=== PATIENT | female | born 1975 | race Caucasian/White ===

== ENCOUNTER 2016-11-25 06:13 | Emergency (ER) | payer OTHER, MEDICAID ==
[2016-11-25 06:25] VITALS: BP 102/76; PULSE 96; RESP 14; TEMP 98.1; O2SAT 94
--- NOTE | 2016-11-25 07:02 | EDPHY ---
H & P Stated Complaint: R wrist injury, FOOSH Time Seen by Provider: 11/25/16 06:27 HPI/ROS: HPI The patient presents with a fall which occurred 2 days ago onto her outstretched right arm. She has had pain for the last 2 days which is worse with movement, thus she comes into the emergency room. She has had no prior wrist injuries. The pain is over the ulnar aspect of her wrist is worse with movement, achy in nature, does not radiate, not associated with any numbness or tingling of the hand.. REVIEW OF SYSTEMS Constitutional: No fever, no chills. Musculoskeletal: No back pain. Skin: No rashes. Neurological: No headache. PMHx: Chronic pain Soc Hx: Homeless FHx: PHYSICAL General Appearance: Alert, no distress Eyes: Pupils equal and round no pallor or injection ENT, Mouth: Mucous membranes moist Respiratory: Breathing comfortably Neurological: A&O, moves all extremities Skin: Warm and dry, no rashes Musculoskeletal: Neck is supple non tender Extremities: Right wrist with mild tenderness overlying the anterior medial aspect of the wrist with no deformity, full range of motion of the wrist, 2+ radial pulses, sensation intact of hand Psychiatric: Patient is oriented X 3, there is no agitation Source: Patient Exam Limitations: No limitations - Personal History LMP (Females 10-55): 8-14 Days Ago Current Tetanus/Diphtheria Vaccine: Unsure Tetanus Vaccine Date: Pt. unsure of date - Medical/Surgical History Hx Asthma: No Hx Chronic Respiratory Disease: No Hx Diabetes: No Hx Cardiac Disease: No Hx Renal Disease: No Hx Cirrhosis: No Hx Alcoholism: No Hx HIV/AIDS: No Hx Splenectomy or Spleen Trauma: No Other PMH: PMHx: Polycystic ovarian disease, Bipolar, PTSD, anxiety,Chronic pain , depression, SI hx. PSHx: Gallbladder removed, appy - Social History Smoking Status: Former smoker Constitutional: Initial Vital Signs Temperature (C) 36.7 C 11/25/16 06:19 Heart Rate 96 11/25/16 06:19 Respiratory Rate 14 11/25/16 06:19 Blood Pressure 102/76 11/25/16 06:19 O2 Sat (%) 94 11/25/16 06:19 O2 Delivery Mode Room Air Allergies/Adverse Reactions: Latex, Natural Rubber Allergy (Intermediate, Verified 09/05/15 16:11) Rash codeine Allergy (Mild, Verified 09/05/15 16:11) Other-Enter Comments morphine Allergy (Mild, Verified 09/05/15 16:11) Other-Enter Comments Home Medications: Medication Instructions Recorded Diazepam [Valium 5 MG (*)] 5 mg PO TID PRN 09/26/14 oxyCODONE IR [Oxycodone Ir (*)] 5 mg PO Q6 PRN 09/26/14 Abilify 11/25/16 Effexor 11/25/16 IBUPROFEN 11/25/16 Medical Decision Making - Diagnostics Imaging Results: Right wrist three views shows no fracture, no dislocation, interpreted by me, radiology interpretation is pending. Imaging: I viewed and interpreted images myself Differential Diagnosis: This is a 41-year-old female with right wrist injury 2 days ago with continued pain. Differential diagnosis includes Colles fracture, wrist sprain, ulnar styloid fracture. In the emergency department x-rays were obtained and were unremarkable. She was placed in a Velcro wrist splint for comfort. I have instructed her to use ice as needed and she can follow up with her primary care doctor. Departure - Departure Disposition: Home, Routine, Self-Care Clinical Impression: Wrist sprain Qualifiers: Encounter type: initial encounter Laterality: right Qualified Code(s): S63.501A - Unspecified sprain of right wrist, initial encounter Condition: Good Instructions: Wrist Sprain (ED) Additional Instructions: Please use rest, ice, elevation as needed. You should return to the emergency room if your worse in any way. Referrals: KVNG LANGFORD [Primary Care Provider] - As per Instructions
== END 2016-11-25 07:21 | disposition home or self-care (01) ==
DX: S63.501A Unspecified sprain of right wrist, initial encounter (principal); Z87.891 Personal history of nicotine dependence; Z91.040 Latex allergy status; W19.XXXA Unspecified fall, initial encounter
CPT/HCPCS: 73110; 99283; L3807

== ENCOUNTER 2017-10-03 00:35 | Emergency (ER) | payer OTHER, MEDICAID ==
[2017-10-03] MEDS ORDERED: NS 1,000 ML IV ONE (00:55)
--- NOTE | 2017-10-03 00:57 | EDPHY ---
H & P Stated Complaint: RUQ abd pain since lastnight Time Seen by Provider: 10/03/17 00:57 HPI/ROS: HPI CHIEF COMPLAINT: Abdominal pain, right upper quadrant HISTORY OF PRESENT ILLNESS: Patient is a very pleasant 42-year-old female, she presents emergency room right upper quadrant abdominal pain she describes as sharp stabbing it is worse after she breathes in. Shows the pain as sharp stabbing right upper quadrant. It hurts when you press on her right upper quadrant. She denies any chest pain. Denies shortness of breath, denies productive cough. States the symptoms have been present since yesterday or early in the morning. She has had nausea but no vomiting she also endorses some diarrhea. Denies any lower abdominal pain. No fever. Past Medical History: Patient has a history of polycystic ovarian syndrome, bipolar disorder, PTSD, chronic pain, diabetes Past Surgical History: Cholecystectomy, appendectomy, tubal ligation, bladder surgery Social History: Denies daily use of drugs alcohol tobacco. Homeless. Family History: Noncontributory. ROS REVIEW OF SYSTEMS: A comprehensive 10 point review of systems is otherwise negative aside from elements mentioned in the history of present illness. Exam Constitutional nontoxic appearing, triage nursing summary reviewed, vital signs reviewed, awake/alert. Eyes normal conjunctivae and sclera, EOMI, PERRLA. HENT normal inspection, atraumatic, moist mucus membranes, no epistaxis, neck supple/ no meningismus, no raccoon eyes. Respiratory clear to auscultation bilaterally, normal breath sounds, no respiratory distress, no wheezing. Cardiovascular rate normal, regular rhythm, no murmur, no edema, distal pulses normal. Gastrointestinal focal tenderness right upper quadrant, no peritoneal signs, reproducible on exam, no rebound, no guarding, normal bowel sounds, no distension, no pulsatile mass. Genitourinary no CVA tenderness. Musculoskeletal no midline vertebral tenderness, full range of motion, no calf swelling, no tenderness of extremities, no meningismus, good pulses, neurovascularly intact. Skin pink, warm, & dry, no rash, skin atraumatic. Neurologic awake, alert and oriented x 3, AAOx3, moves all 4 extremities equally, motor intact, sensory intact, CN II-XII intact, normal cerebellar, normal vision, normal speech. Psychiatric normal mood/affect. Heme/Lymph/Immune no lymphadenopathy. Differential diagnosis includes but is not limited to and in no particular order : Bowel obstruction, appendicitis, gallbladder disease, diverticulitis, colitis , enteritis, perforated viscus, gastritis, GERD, esophagitis, urinary tract infection, pyelonephritis, kidney stones Medical Decision Making: Plan for this patient IV establishment with blood draw IV fluids, Toradol for pain control, check electrolytes, CBC, abdominal labs and CT scan abdomen pelvis with IV contrast. Re-evaluation: CT scan abdomen pelvis with IV contrast shows no acute inflammatory process called to me by Dr. Rosas. Urinalysis shows UTI nitrite positive. I have ordered urine culture. Will give a g of Rocephin. 0318: I did re-evaluate the patient this time she is resting comfortably. Abdomen is soft. Not vomiting. I went over her test results with her she is afebrile here. Urine cultures been sent. 1 g Rocephin. Keflex prescription for home. She understands drink lots of fluids. Additionally I discussed return precautions with her she understands return emergency room if develops worsening abdominal pain fever vomiting. Source: Patient - Personal History LMP (Females 10-55): 8-14 Days Ago Current Tetanus/Diphtheria Vaccine: Yes Current Tetanus Diphtheria and Acellular Pertussis (TDAP): Yes Tetanus Vaccine Date: Pt. unsure of date - Medical/Surgical History Hx Asthma: No Hx Chronic Respiratory Disease: No Hx Diabetes: Yes Hx Cardiac Disease: No Hx Renal Disease: No Hx Cirrhosis: No Hx Alcoholism: No Hx HIV/AIDS: No Hx Splenectomy or Spleen Trauma: No Other PMH: PMHx: Polycystic ovarian disease, Bipolar, PTSD, anxiety,Chronic pain , depression, SI hx, DM 2. PSHx: Gallbladder removed, appy, tubes tied, bladder sling - Social History Smoking Status: Current every day smoker Constitutional: Initial Vital Signs Temperature (C) 36.9 C 10/03/17 00:37 Heart Rate 105 H 10/03/17 00:37 Respiratory Rate 16 10/03/17 00:37 Blood Pressure 147/86 H 10/03/17 00:37 O2 Sat (%) 94 10/03/17 00:37 O2 Delivery Mode Room Air Allergies/Adverse Reactions: Latex, Natural Rubber Allergy (Intermediate, Verified 10/03/17 00:42) Rash codeine Allergy (Mild, Verified 10/03/17 00:42) Other-Enter Comments morphine Allergy (Mild, Verified 10/03/17 00:42) Other-Enter Comments Home Medications: Medication Instructions Recorded Diazepam [Valium 5 MG (*)] 5 mg PO TID PRN 09/26/14 oxyCODONE IR [Oxycodone Ir (*)] 5 mg PO Q6 PRN 09/26/14 Abilify 11/25/16 Effexor 11/25/16 Cephalexin [Keflex] 500 mg PO Q6H #28 cap 10/03/17 Metformin 1000 mg 10/03/17 Medical Decision Making - Data Points Laboratory Results: Laboratory Results 10/03/17 01:26 10/03/17 01:26 10/03/17 10/03/17 10/03/17 02:45 01:26 01:26 WBC RBC Hgb Hct MCV MCH MCHC RDW Plt Count MPV Neut % (Auto) Lymph % (Auto) Sunflower % (Auto) Eos % (Auto) Baso % (Auto) Nucleat RBC Rel Count Absolute Neuts (auto) Absolute Lymphs (auto) Absolute Monos (auto) Absolute Eos (auto) Absolute Basos (auto) Absolute Nucleated RBC Immature Gran % Immature Gran # PT INR APTT D-Dimer VBG Lactic Acid Sodium 141 mEq/L mEq/L (135-145) Potassium 4.2 mEq/L mEq/L (3.3-5.0) Chloride 107 mEq/L mEq/L (97-110) Carbon Dioxide 22 mEq/l mEq/l (22-31) Anion Gap 12 mEq/L mEq/L (8-16) BUN 10 mg/dL mg/dL (7-23) Creatinine 0.7 mg/dL mg/dL (0.6-1.0) Estimated GFR > 60 Glucose 134 mg/dL H mg/dL (70-100) Calcium 9.9 mg/dL mg/dL (8.5-10.4) Total Bilirubin 0.7 mg/dL mg/dL (0.1-1.4) Conjugated Bilirubin 0.3 mg/dL mg/dL (0.0-0.5) Unconjugated Bilirubin 0.4 mg/dL mg/dL (0.0-1.1) AST 12 IU/L L IU/L (14-46) ALT 31 IU/L IU/L (9-52) Alkaline Phosphatase 146 IU/L H IU/L (38-126) Troponin I < 0.012 ng/mL ng/mL (0.000-0.034) Total Protein 7.1 g/dL g/dL (6.3-8.2) Albumin 4.1 g/dL g/dL (3.5-5.0) Lipase 56 IU/L IU/L (23-300) Beta HCG, Qual NEGATIVE Urine Color YELLOW Urine Appearance HAZY Urine pH 6.0 (5.0-7.5) Ur Specific [place] 1.005 (1.002-1.030) Urine Protein NEGATIVE (NEGATIVE) Urine Ketones NEGATIVE (NEGATIVE) Urine Blood 1+ H (NEGATIVE) Urine Nitrate POSITIVE H (NEGATIVE) Urine Bilirubin NEGATIVE (NEGATIVE) Urine Urobilinogen NEGATIVE EU EU (0.2-1.0) Ur Leukocyte Esterase TRACE H (NEGATIVE) Urine RBC 3-5 /hpf H /hpf (0-3) Urine WBC 3-5 /hpf H /hpf (0-3) Ur Epithelial Cells TRACE /lpf /lpf (NONE-1+) Urine Bacteria 3+ /hpf H /hpf (NONE SEEN) Urine Mucus TRACE /lpf /lpf (NONE-1+) Urine Glucose NEGATIVE (NEGATIVE) 10/03/17 10/03/17 10/03/17 01:26 01:26 01:26 WBC 15.86 10^3/uL H 10^3/uL (3.80-9.50) RBC 5.88 10^6/uL H 10^6/uL (4.18-5.33) Hgb 18.0 g/dL H g/dL (12.6-16.3) Hct 51.7 % H % (38.0-47.0) MCV 87.9 fL fL (81.5-99.8) MCH 30.6 pg pg (27.9-34.1) MCHC 34.8 g/dL g/dL (32.4-36.7) RDW 13.2 % % (11.5-15.2) Plt Count 262 10^3/uL 10^3/uL (150-400) MPV 8.3 fL L fL (8.7-11.7) Neut % (Auto) 73.3 % % (39.3-74.2) Lymph % (Auto) 20.5 % % (15.0-45.0) Sunflower % (Auto) 5.2 % % (4.5-13.0) Eos % (Auto) 0.2 % L % (0.6-7.6) Baso % (Auto) 0.4 % % (0.3-1.7) Nucleat RBC Rel Count 0.0 % % (0.0-0.2) Absolute Neuts (auto) 11.62 10^3/uL H 10^3/uL (1.70-6.50) Absolute Lymphs (auto) 3.25 10^3/uL H 10^3/uL (1.00-3.00) Absolute Monos (auto) 0.82 10^3/uL H 10^3/uL (0.30-0.80) Absolute Eos (auto) 0.03 10^3/uL 10^3/uL (0.03-0.40) Absolute Basos (auto) 0.07 10^3/uL 10^3/uL (0.02-0.10) Absolute Nucleated RBC 0.00 10^3/uL 10^3/uL (0-0.01) Immature Gran % 0.4 % % (0.0-1.1) Immature Gran # 0.07 10^3/uL 10^3/uL (0.00-0.10) PT 13.9 SEC SEC (12.0-15.0) INR 1.05 (0.83-1.16) APTT 33.2 SEC SEC (23.0-38.0) D-Dimer < 0.27 ug/mLFEU ug/mLFEU (0.00-0.50) VBG Lactic Acid 1.6 mmol/L mmol/L (0.7-2.1) Sodium Potassium Chloride Carbon Dioxide Anion Gap BUN Creatinine Estimated GFR Glucose Calcium Total Bilirubin Conjugated Bilirubin Unconjugated Bilirubin AST ALT Alkaline Phosphatase Troponin I Total Protein Albumin Lipase Beta HCG, Qual Urine Color Urine Appearance Urine pH Ur Specific [place] Urine Protein Urine Ketones Urine Blood Urine Nitrate Urine Bilirubin Urine Urobilinogen Ur Leukocyte Esterase Urine RBC Urine WBC Ur Epithelial Cells Urine Bacteria Urine Mucus Urine Glucose Medications Given: Discontinued Medications Sodium Chloride (Ns) 1,000 mls @ 0 mls/hr IV EDNOW ONE; Wide Open PRN Reason: Protocol Stop: 10/03/17 00:56 Last Admin: 10/03/17 01:30 Dose: 1,000 mls Ketorolac Tromethamine (Toradol) 15 mg IVP EDNOW ONE Stop: 10/03/17 02:15 Last Admin: 10/03/17 02:45 Dose: 15 mg Promethazine HCl (Phenergan) 6.25 mg IVP ONCE ONE Stop: 10/03/17 01:02 Last Admin: 10/03/17 01:30 Dose: 6.25 mg Departure - Departure Disposition: Home, Routine, Self-Care Clinical Impression: Abdominal pain Qualifiers: Abdominal location: right upper quadrant Qualified Code(s): R10.11 - Right upper quadrant pain UTI (urinary tract infection) Qualifiers: Urinary tract infection type: acute cystitis Hematuria presence: with hematuria Qualified Code(s): N30.01 - Acute cystitis with hematuria Condition: Good Instructions: Urinary Tract Infection in Women (ED), Acute Abdominal Pain (ED) Additional Instructions: 1. Stay well-hydrated drink lots of fluids 2. Take antibiotics as prescribed 3. Return emergency room if you have worsening abdominal pain fever vomiting. Referrals: KVNG LANGFORD [Primary Care Provider] - As per Instructions Prescriptions: Cephalexin [Keflex] 500 mg PO Q6H #28 cap
[2017-10-03] MEDS ORDERED: PROMETHAZINE HCL 25 MG/ML INJ IVP ONE (01:01)
[2017-10-03 01:42] LABS: PLATELET COUNT 262 10^3/uL (150-400)
[2017-10-03 01:49] LABS: INR 1.05 (0.83-1.16); PROTIME(PATIENT) 13.9 SEC (12.0-15.0)
[2017-10-03] MEDS ORDERED: KETOROLAC 15 MG/1 ML SDV IVP ONE (02:14)
[2017-10-03] MEDS ORDERED: IOPAMIDOL (ISOVUE-300) 100 ML BTL ONE (02:20)
[2017-10-03] MEDS ORDERED: CEPHALEXIN 500MG PREPACK#4 BTL TAKEHOME ONE (03:19)
[2017-10-03 03:25] VITALS: BP 135/95
== END 2017-10-03 03:44 | disposition home or self-care (01) ==
DX: N30.01 Acute cystitis with hematuria (principal); E11.9 Type 2 diabetes mellitus without complications; B96.20 Unspecified Escherichia coli [E. coli] as the cause of diseases classified elsewhere; E86.9 Volume depletion, unspecified; Z79.84 Long term (current) use of oral hypoglycemic drugs; Z90.49 Acquired absence of other specified parts of digestive tract
CPT/HCPCS: 74177; 96361; 96374; 96375; 99285; J0696; J1885; J2550; Q9967; 84484-PO

== ENCOUNTER 2018-04-27 15:54 | Emergency (ER) | payer OTHER, MEDICAID ==
[2018-04-27 16:02] VITALS: BP 129/87
[2018-04-27] MEDS ORDERED: IPRATROPIUM/ALBUTEROL 3 ML DEYVIAL IH ONE (16:19)
[2018-04-27] MEDS ORDERED: DEXAMETHASONE 4 MG TAB PO ONE (16:19)
[2018-04-27] MEDS ORDERED: ALBUTEROL INH PREPACK MDI TAKEHOME ONE (16:19)
--- NOTE | 2018-04-27 16:21 | EDPHY ---
H & P Time Seen by Provider: 04/27/18 16:09 HPI/ROS: CHIEF COMPLAINT: Sore throat, cough, hoarse voice, right earache HISTORY OF PRESENT ILLNESS: Patient describes having a hoarse voice for the past 2 months but a sore throat for about the past 2 days. Associated with a radiation and to the right ear with an earache as well as a cough which is nonproductive for the past 4 days. Not associated with fever or chills. Not short of breath. She does have a little bit of a migraine headache and feels more tired than usual. Still can swallow and eat and drink. Does not have dental symptoms or stiff neck. No hemoptysis. REVIEW OF SYSTEMS: Eye: no change in vision ENT: HPI Cardiac: no chest pain or syncope Pulmonary: HPI Abdomen: no vomiting, no abdominal pain. She has some chronic diarrhea from the metformin, unchanged Musculoskeletal: no back pain or leg swelling Skin: no rash Neuro: HPI Constitutional: no fever : no urinary symptoms A comprehensive 10 point review of systems is otherwise negative aside from elements mentioned in the history of present illness. PAST MEDICAL HISTORY: Includes polycystic ovaries, bipolar and PTSD, diabetes, cholecystectomy, appendectomy, tubal ligation Social history: Tobacco smoker General Appearance: Alert and conversant, cooperative. Eyes: No scleral icterus. ENT, Mouth: Normal mucous membranes. Normal tympanic membranes bilaterally with normal ear canals. Pharynx slightly red but no exudate, no trismus, uvula midline, no stridor or drooling, no gum swelling. Respiratory: Bilateral expiratory wheezes but no focal lung sounds, no rhonchi or rales, no consolidation auscultated. Cardiovascular: Regular rate and rhythm. Heart rate 90-100 on my examination. Gastrointestinal: Abdomen is soft and non tender. Neurological: Alert, face symmetric, normal motor and sensory in extremities. Skin: No urticaria. Musculoskeletal: No calf tenderness. Normal range of motion of the neck, no meningeal signs. Psychiatric: Not agitated. Emergency Department course/MDM: Patient presents with acute URI on top of several months of hoarse voice. Since she is a tobacco smoker she is warned that she will be referred for mandatory ENT evaluation, possibility of cancer discussed. Has URI but does not have clinical evidence of pneumonia. Treatment for bronchospasm with beta agonist and oral steroid. Oral steroid also appropriate for her sore throat without evidence of streptococcal infection or retropharyngeal abscess or peritonsillar abscess or epiglottitis. Smoking Status: Current every day smoker Constitutional: Initial Vital Signs Temperature (C) 37.0 C 04/27/18 15:56 Heart Rate 110 H 04/27/18 15:56 Respiratory Rate 18 04/27/18 15:56 Blood Pressure 129/87 H 04/27/18 15:56 O2 Sat (%) 93 04/27/18 15:56 O2 Delivery Mode Room Air Allergies/Adverse Reactions: Latex, Natural Rubber Allergy (Intermediate, Verified 04/27/18 16:02) Rash codeine Allergy (Mild, Verified 04/27/18 16:02) Other-Enter Comments morphine Allergy (Mild, Verified 04/27/18 16:02) Other-Enter Comments Home Medications: Medication Instructions Recorded Diazepam [Valium 5 MG (*)] 5 mg PO TID PRN 09/26/14 oxyCODONE IR [Oxycodone Ir (*)] 5 mg PO Q6 PRN 09/26/14 Abilify 11/25/16 Effexor 11/25/16 Cephalexin [Keflex] 500 mg PO Q6H #28 cap 10/03/17 Metformin 1000 mg 10/03/17 MDM/Departure - MDM Medications Given: Discontinued Medications Albuterol Sulfate (Proventil Inh Prepack) 1 mdi TAKEHOME EDNOW ONE Stop: 04/27/18 16:20 Last Admin: 04/27/18 16:24 Dose: 1 mdi Albuterol/Ipratropium (Duoneb) 3 ml IH EDNOW ONE Stop: 04/27/18 16:20 Last Admin: 04/27/18 16:24 Dose: 3 ml Dexamethasone (Decadron) 8 mg PO EDNOW ONE Stop: 04/27/18 16:20 Last Admin: 04/27/18 16:25 Dose: 8 mg - Depart Disposition: Home, Routine, Self-Care Clinical Impression: Bronchospasm URI (upper respiratory infection) Qualifiers: URI type: unspecified URI Qualified Code(s): J06.9 - Acute upper respiratory infection, unspecified Condition: Good Instructions: Albuterol (By breathing), Upper Respiratory Infection (ED), Bronchospasm (ED) Referrals: KVNG LANGFORD [Primary Care Provider] - As per Instructions Edis Neal MD [Medical Doctor] - As per Instructions (Please follow-up in the ear nose and throat office in the next 1-2 weeks for evaluation of your ongoing hoarse voice.)
== END 2018-04-27 16:36 | disposition home or self-care (01) ==
DX: J98.01 Acute bronchospasm (principal); J06.9 Acute upper respiratory infection, unspecified; F17.200 Nicotine dependence, unspecified, uncomplicated

== ENCOUNTER → 2018-05-04 | Outpatient (CLI) | payer OTHER, MEDICAID ==
[~2018-05-04] MED LIST: IOPAMIDOL (ISOVUE 370) 100 ML BTL IV ONE
== END ==
LOC: FIMAGING 15:00
PROVIDERS: ATTEND Otolaryngology
DX: R22.1 Localized swelling, mass and lump, neck (principal); R91.8 Other nonspecific abnormal finding of lung field
CPT/HCPCS: 70491; Q9967; 82565-PO

== ENCOUNTER → 2018-05-09 | Outpatient (CLI) | payer OTHER, MEDICAID | LOC: FIMAGING 08:37 ==

== ENCOUNTER → 2018-05-12 | Outpatient (CLI) | payer OTHER, MEDICAID ==
[~2018-05-12] MED LIST changes: -IOPAMIDOL (ISOVUE 370) 100 ML BTL IV ONE; +IOPAMIDOL (ISOVUE 370) 75 ML BTL IV ONE
== END ==
LOC: FIMAGING 14:37
PROVIDERS: ATTEND Otolaryngology
DX: R91.8 Other nonspecific abnormal finding of lung field (principal)
CPT/HCPCS: 71260; Q9967; 82565-PO